=== PATIENT | female | born 1995 | race Caucasian/White ===

== ENCOUNTER → 2016-09-29 | Outpatient (CLI) | payer BC ==
[~2016-09-29] MED LIST: CYCL10TA6 PO; LEVO50TA6 PO; LITH150C PO; LTHSR/300 PO; MELO15TA4 PO; PRED50TA PO; QUET5TAB PO; TOPI1CAP PO; TPM25 PO
[2016-09-29 17:32] LABS: BASO % 0.4 %; BASO ABS # 0.03 K/uL (0-0.2); COMPLETE YES; EOS % 2.3 %; HEMATOCRIT 41.1 % (37-47); LYMPH % 30.5 %; LYMPH ABS # 2.48 K/uL (1.2-3.4); MEAN CELL VOLUME 86.7 fL (80-100); MEAN CORPUSCULAR HEMOGLOBIN 30.2 pg (25-34); MEAN CORPUSCULAR HGB CONC 34.8 g/dl (32-36); MEAN PLATELET VOLUME 10.1 fL (7.4-10.4); MONO % 5.8 %; PLATELET COUNT 240 K/uL (130-400); RED BLOOD COUNT 4.74 M/uL (4.2-5.4); WHITE BLOOD COUNT 8.12 K/uL (4.8-10.8)
[2016-09-29 17:57] LABS: ALT/SGPT 20 U/L (12-78); BLOOD UREA NITROGEN 16 mg/dl (7-18); BUN/CREATININE RATIO 16.6 (10-20); CALCIUM 8.7 mg/dl (8.5-10.1); CARBON DIOXIDE 24 mmol/L (21-32); CHLORIDE 111 mmol/L (98-107); CREATININE 0.99 mg/dl (0.60-1.20); GLUCOSE 93 mg/dl (70-99); POTASSIUM 3.8 mmol/L (3.5-5.1); SODIUM 142 mmol/L (136-145); TOTAL IRON BINDING CAPACITY 317 mcg/dl (250-450)
[2016-09-29 18:05] LABS: ALB/GLOB RATIO 1.3 (0.9-2); ALKALINE PHOSPHATASE 75 U/L (45-117); AST/SGOT 10 U/L (15-37); FERRITIN 23.9 ng/ml (8.0-388.0)
[2016-10-02 22:50] LABS: 18KDIGG BAND NONREACTIVE (NONREACTIVE); 23KDIGG BAND NONREACTIVE (NONREACTIVE); 23KDIGM BAND REACTIVE (NONREACTIVE); 28KDIGG BAND NONREACTIVE (NONREACTIVE); 30KDIGG BAND NONREACTIVE (NONREACTIVE); 39KDIGG BAND NONREACTIVE (NONREACTIVE); 39KDIGM BAND NONREACTIVE (NONREACTIVE); 41KDIGG BAND REACTIVE (NONREACTIVE); 41KDIGM BAND NONREACTIVE (NONREACTIVE); 45KDIGG BAND NONREACTIVE (NONREACTIVE); 58KDIGG BAND NONREACTIVE (NONREACTIVE); 66KDIGG BAND NONREACTIVE (NONREACTIVE); 93KDIGG BAND NONREACTIVE (NONREACTIVE)
[2016-10-04 12:18] LABS: EPSTEIN BARR VIR CAPSID IGG <0.91 INDEX
== END | disposition home or self-care (01) ==
LOC: C.LAB 17:03
PROVIDERS: ATTEND Family Medicine
DX: R53.83 Other fatigue (principal); M25.50 Pain in unspecified joint

== ENCOUNTER → 2016-11-06 | Outpatient (CLI) | payer BC ==
[2016-11-06 13:35] LABS: THYROID STIMULATING HORMONE 0.871 uIu/ml (0.300-4.500)
[2016-11-06 13:36] LABS: PROLACTIN 6.16 ng/mL; TESTOSTERONE,TOTAL 29.9 ng/dl
[2016-11-10 14:48] LABS: PREGNENELONE **TC 31493X 32 ng/dL; SEX HORMONE BINDING GLOB 45 NMOL/L (17-124)
== END | disposition home or self-care (01) ==
LOC: C.LAB 12:20
PROVIDERS: ATTEND Family Medicine
DX: E28.9 Ovarian dysfunction, unspecified (principal)

== ENCOUNTER 2016-11-30 23:38 | Emergency (ER) | payer BC ==
[~2016-11-30] VITALS: Ht 175.3 cm; Wt 85.0 kg
[~2016-11-30 23:38] MED LIST changes: -CYCL10TA6 PO; -LEVO50TA6 PO; -MELO15TA4 PO; -PRED50TA PO; -TOPI1CAP PO
[2016-11-30 23:39] VITALS: TEMP 36.7; Ht 175.3 cm; Wt 85.0 kg
[2016-12-01] MEDS ORDERED: DEXAMETHASONE SOD INJ 10 MG/ML VIAL IM ONE
[2016-12-01] MEDS ORDERED: FLEXERIL HOME PACK 10 MG VIAL PO ONE
[2016-12-01] MEDS ORDERED: CYCL10TA6 PO (00:17)
[2016-12-01] MEDS ORDERED: PRED50TA PO (00:17)
--- NOTE | 2016-12-01 00:17 | EMERGENCY ROOM VISIT NOTE ---
ED Visit Note First contact with patient: 23:47 Chief Complaint: Severe Lower Back Pain History of Present Illness: Patient is a 21-year-old female who presents emergency department this evening for evaluation of her low back pain. She reports that she's had progressively worsening low back pain since this evening. She denies any falls or trauma to the spine. She reports no history of low back pain issues. The patient does take daily Mobicox for her shoulder pain. The patient rates her current discomfort as a 7/10. She denies any numbness or tingling into the distal tremors. She reports pain to the hips. She does report that she has had some urinary frequency the past 2 days, denies any burning with urination or history of UTI. The patient denies any fevers, chills, abdominal pain, hematochezia, melena, hematuria, or dysuria. Medications: Reviewed and discussed with the patient. Allergies: Ibuprofen, penicillins PMH: No pertinent past medical history. SHx: Patient is a 21-year-old female who lives locally. ROS: All pertinent positive and negative review of systems are appropriately documented in the History of Present Illness. Physical Exam: VITAL SIGNS - Vital signs and nursing notes were reviewed. GENERAL - 21-year-old female appearing her stated age and in noticeable discomfort throughout the exam. NECK - FROM of the cervical spine. ABDOMEN - Abdominal contour flat without pulsations or visible masses. BS normoactive all four quadrants. No tenderness, palpable masses, hepatosplenomegaly, or ascites noted. MUSCULOSKELETAL - ROM of the lumbar spine region was assessed as full. Pt was seated on the exam table. Pt made fluent movements when asked to change position. No step-off deformities were palpated down the thoracolumbar spines. Moderate Tenderness to Palpation experienced at the level of the SI joints bilaterally. No reproducible tenderness to palpation across the iliac spine. NEUROLOGIC - REFLEXES: +3/4 patellar reflexes B/L. SENSORY: Spinothalamic tract was found to be intact with ability to discriminate sharp versus dull sensation at the level of hip joint down do the great toe. No sensory defects of the dorsal column were appreciated utilizing light touch for evaluation. CEREBELLAR: Pt able to perform rapid alternating movements of the feet. EXTREMITIES - Range of Motion - No tremors, ticks, or fasciculations of the lower extremities noticed during inspection. FROM of the lower extremities. No clonus noted with PROM of the lower extremities bilaterally. Pt able to perform straight leg raises B/L without any difficulty. Antelmo's test (MESFIN test) was unremarkable for focal Sacroiliac Dysfunction. Hip scouring produced no pain. Pt had +5/5 strength appreciated bilaterally in the lower extremities against examiner's resistance. VASCULAR - Capillary refill of the great toe was brisk. No mottling or blanching of the extremities present. +3/5 dorsalis pedis pulses palpated bilaterally. ED Course: Patient was seen and evaluated by myself. I had a lengthy discussion with the patient regarding symptoms and management. She was treated with initial dose of Decadron in the emergency department. She is unable to receive NSAIDs. She drove to the emergency department precluded the use for narcotic pain medication. The patient takes Mobic daily. She was provided initial dose of Decadron intramuscular. She was provided a home pack for Flexeril. The patient was placed on prednisone and Flexeril. Her symptoms are concerning for any acute compressive etiology at this point. The patient was instructed to follow-up with her primary care provider from today's visit. She was educated on worrisome symptoms for return visit to the emergency department. Patient discharged home in good condition. In the evaluation and treatment of this patient the following differential diagnoses were considered: Cauda equina syndrome, discitis, HNP, sciatica, epidural abscess, psoas abscess, musculoskeletal strain, lumbar fracture, lumbar dislocation, lumbar subluxation, spondylolisthesis, spondylosis, or compression fracture. Impression: Low Back Pain - SI Joint Pain Discharge Instructions: You have been treated in the Emergency Department for Back Pain. You have been prescribed Flexeril (cyclobenzaprine) 1-2 tabs orally, three times per day. Do NOT exceed 30 mg (6 tabs) per day. Take your first dose at bedtime as it can make you drowsy. Always take all medications as prescribed. You have been prescribed Prednisone 50 mg to be taken orally once a day for the next 4 days. This is an anti-inflammatory medicine to be used to help minimize your symptoms. You should take the COMPLETE course of the medication. For pain control, you can use the following [id number]-[id number] medicines (if >12 yo): - Regular strength (325mg/tab) Tylenol (acetaminophen) 2 tabs every 4-6 hours as needed. Do not exceed 12 tablets in a 24 hour period. Avoid taking more than 4 grams (4000 mg) of Tylenol per day. This includes any other sources of acetaminophen you may take on a regular basis. - Regular strength (200 mg/tab) Advil (ibuprofen) 1-2 tabs every 4-6 hours as needed. Do not exceed a dose of 3200 mg per day. If this is an acute injury, ice can be applied to the area of pain for the first 3 days to help decrease pain and inflammation. After the first 3 days, a heating pad can be used over the area for continued soothing relief. You should schedule a follow-up appointment in 2-3 days with your Primary Care Provider for further evaluation and treatment of your back pain. Return to the Emergency Department if your current symptoms worsen despite treatment course outlined above, or if you develop any of the following symptoms : intractable pain despite aforementioned treatment course, loss of control of your bowel or bladder, numbness or tingling in your groin, or development of a fever. Problem List Medical Problems: (1) Bipolar disorder Status: Chronic (2) Migraine Status: Chronic (3) Pneumonia Status: Resolved Surgical Problems: (1) History of tonsillectomy Status: Chronic Current/Historical Medications Scheduled Cyclobenzaprine Hcl (Flexeril), 10 MG PO TID Levothyroxine Sodium (Levothyroxine Sodium), 50 MCG PO DAILY [place] Carbonate ([place] Carbonate), 300 MG PO HS Meloxicam (Meloxicam), 15 MG PO DAILY Prednisone (Prednisone), 50 MG PO DAILY Quetiapine Fumarate (Seroquel), 50 MG PO HS Topiramate (Trokendi Xr), 25 MG PO DAILY Allergies Coded Allergies: Penicillins (Unverified Allergy, Mild, 11/30/16) Ibuprofen (Unverified Allergy, Unknown, TAKING MEDS THAT PRECLUDES MOTRIN , 11/30/16) Vital Signs Date Time Temp Pulse Resp B/P Pulse Ox O2 Delivery O2 Flow Rate FiO2 12/01/16 00:23 66 16 123/63 97 11/30/16 23:39 36.7 84 16 142/87 98 Room Air Laboratory Results Test 11/30/16 23:45 Urine Test NEG (NEG) Medications Administered Medications (Trade) Dose Ordered Sig/Kait Route Start Time Stop Time Status Last Admin Dose Admin Dexamethasone Sodium Phosphate (Decadron Inj) 10 mg NOW ONCE IM 12/01/16 00:00 12/01/16 00:01 DC 12/01/16 00:07 10 MG Cyclobenzaprine HCl (FLEXERIL 10MG Home Pack) 1 homepack UD ONCE PO 12/01/16 00:00 12/01/16 00:01 DC 12/01/16 00:07 1 HOMEPACK Departure Information Impression Primary Impression: Back pain, lumbosacral Additional Impression: Sacroiliac joint pain Dispostion Home / Self-Care Condition GOOD Prescriptions Cyclobenzaprine Hcl (FLEXERIL) 10 Mg Tab 10 MG PO TID for 5 Days, #15 TAB Prov: Jeff Massey PA-C 12/01/16 Prednisone (Prednisone) 50 Mg Tab 50 MG PO DAILY for 4 Days, #4 TAB Prov: Jeff Massey PA-C 12/01/16 Referrals Silvano Alvarez M.D. (PCP) Patient Instructions Back Pain - [facility], [facility] Additional Instructions You have been treated in the Emergency Department for Back Pain. You have been prescribed Flexeril (cyclobenzaprine) 1-2 tabs orally, three times per day. Do NOT exceed 30 mg (6 tabs) per day. Take your first dose at bedtime as it can make you drowsy. Always take all medications as prescribed. You have been prescribed Prednisone 50 mg to be taken orally once a day for the next 4 days. This is an anti-inflammatory medicine to be used to help minimize your symptoms. You should take the COMPLETE course of the medication. For pain control, you can use the following [id number] medicines (if >12 yo): - Regular strength (325mg/tab) Tylenol (acetaminophen) 2 tabs every 4-6 hours as needed. Do not exceed 12 tablets in a 24 hour period. Avoid taking more than 4 grams (4000 mg) of Tylenol per day. This includes any other sources of acetaminophen you may take on a regular basis. - Regular strength (200 mg/tab) Advil (ibuprofen) 1-2 tabs every 4-6 hours as needed. Do not exceed a dose of 3200 mg per day. If this is an acute injury, ice can be applied to the area of pain for the first 3 days to help decrease pain and inflammation. After the first 3 days, a heating pad can be used over the area for continued soothing relief. You should schedule a follow-up appointment in 2-3 days with your Primary Care Provider for further evaluation and treatment of your back pain. Return to the Emergency Department if your current symptoms worsen despite treatment course outlined above, or if you develop any of the following symptoms : intractable pain despite aforementioned treatment course, loss of control of your bowel or bladder, numbness or tingling in your groin, or development of a fever. Problem Qualifiers
[2016-12-01 00:23] VITALS: BP 123/63; PULSE 66; O2SAT 97
[2016-12-01] MEDS ORDERED: TOPI1CAP PO (00:23)
[2016-12-01] MEDS ORDERED: LEVO50TA6 PO (00:23)
[2016-12-01] MEDS ORDERED: MELO15TA4 PO (00:25)
== END 2016-12-01 00:25 | disposition home or self-care (01) ==
LOC: C.EDB 23:38 → C.EDA 12-01 00:25
DX: M54.5 Low back pain (principal); M53.3 Sacrococcygeal disorders, not elsewhere classified; R35.0 Frequency of micturition; F31.9 Bipolar disorder, unspecified; Z79.899 Other long term (current) drug therapy

== ENCOUNTER 2018-04-17 13:07 | Emergency (ER) | payer BC, OTHER ==
[~2018-04-17] VITALS: Ht 175.3 cm; Wt 80.6 kg
[~2018-04-17 13:07] MED LIST changes: +LEVO50TA6 PO; -LITH150C PO; +MELO-83 PO; +TOPI1CAP25 PO; -TPM25 PO
[2018-04-17 13:16] VITALS: BP 130/77; PULSE 79; TEMP 37; O2SAT 98; Ht 175.3 cm; Wt 80.6 kg
--- NOTE | 2018-04-17 16:58 | EMERGENCY ROOM VISIT NOTE ---
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 The patient and crew were responding to [facility] for possible exposure to a powdery substance. They transported to patients from the medical department at [facility]. Once arriving at our facility, there was concern for possible opioid exposure, and the patient underwent decontamination with the clothing and showering. The patient otherwise denies any other symptoms, including shortness of breath, palpitations , nausea, headache or fatigue. Review of Systems 10 system review was performed and was negative except for pertinent positives and negatives as indicated in history of present illness Past Medical/Surgical History Medical Problems: (1) Bipolar disorder (2) Migraine (3) Pneumonia Surgical Problems: (1) History of tonsillectomy Family History Cancer Social History Smoking Status: Never Smoker Alcohol Use: none Marital Status: single Housing Status: lives with family Occupation Status: employed Current/Historical Medications Scheduled Levothyroxine Sodium (Levothyroxine Sodium), 50 MCG PO DAILY [place] Carbonate ([place] Carbonate), 300 MG PO HS Meloxicam (Meloxicam), 15 MG PO DAILY Quetiapine Fumarate (Seroquel), 50 MG PO HS Topiramate (Trokendi Xr), 25 MG PO DAILY Physical Exam Vital Signs Date Time Temp Pulse Resp B/P (MAP) Pulse Ox O2 Delivery O2 Flow Rate FiO2 04/17/18 13:16 37.0 79 18 130/77 98 Room Air Physical Exam CONSTITUTIONAL: Healthy and well nourished. Alert and oriented X 3 with positive affect. HEENT: Normocephalic, atraumatic. Pupils equal, round and reactive. NECK: Full active range of motion without discomfort. RESPIRATORY: Clear to auscultation bilaterally with no wheezing, crackles, rhonchi or stridor. CARDIOVASCULAR: Regular rate and rhythm with no murmurs, rubs or gallops. GASTROINTESTINAL: Bowel sounds present in all quadrants. MUSCULOSKELETAL: Full range of motion of all joints without discomfort. INTEGUMENTARY: No rash or other significant dermatologic conditions noted. NEUROLOGIC: Cranial nerves II-XII grossly intact. No focal neurologic deficits noted. Medical Decision & Procedures ED Course Patient history and physical exam were performed. Nurse's notes were reviewed. Vital signs were reviewed. The patient denies any other symptoms at this time. She was instructed to return for any concerns. I did encourage her to shower and wash her clothing in case she still has any traces of chemicals on her skin or clothing. The patient was happy with plan of care, and voiced understanding of all discharge instructions. Medical Decision Impression Primary Impression: Exposure to toxic chemical Additional Impression: Encounter for assessment of work-related causation of injury Departure Information Dispostion Home / Self-Care Condition [employer]IR [employer] HOME CARE DOCUMENTATION FORM, IMPORTANT VISIT INFORMATION Patient Instructions My [facility] Additional Instructions Return to the emergency department for any concerning symptoms Clean all clothing and shower to avoid any further potential chemical exposure. Problem Qualifiers
== END 2018-04-17 13:39 | disposition home or self-care (01) ==
LOC: C.EDB 13:08 → C.EDD 13:39
DX: Z04.2 Encounter for examination and observation following work accident (principal); Z77.098 Contact with and (suspected) exposure to other hazardous, chiefly nonmedicinal, chemicals; F31.9 Bipolar disorder, unspecified; G43.909 Migraine, unspecified, not intractable, without status migrainosus